=== PATIENT | female | born 1975 | race Asian ===

== ENCOUNTER 2020-06-24 15:48 | Inpatient (IN) | payer OTHER ==
[~2020-06-24] VITALS: Ht 152.4 cm; Wt 62.1 kg
[2020-06-24] MEDS ORDERED: MULT-1192 PO (15:55)
[2020-06-24 16:50] LABS: BASOPHILS % (AUTO) 0.4 % (0.0-2.0); EOSINOPHILS % (AUTO) 2.4 % (1.0-6.0); HEMATOCRIT 35.8 % (36-46); LYMPHOCYTES # (AUTO) 1.1 K/uL (1.0-4.8); LYMPHOCYTES % (AUTO) 26.8 % (22.0-44.0); MEAN CORPUSCULAR HEMOGLOBIN 29.7 pg (26.0-34.0); MEAN CORPUSCULAR HGB CONC 33.4 G/dL (31.0-37.0); MEAN CORPUSCULAR VOLUME 89 fL (80-100); MONOCYTES # (AUTO) 0.2 K/uL (0.1-1.0); MONOCYTES % (AUTO) 5.2 % (2.0-9.0); NEUTROPHILS # (AUTO) 2.6 K/uL (1.8-7.7); NEUTROPHILS % (AUTO) 65.2 % (40.0-70.0); PLATELET COUNT (AUTO) 248 K/uL (150-450); RED BLOOD CELL COUNT(AUTO) 4.02 MIL/uL (4.00-5.20); RED CELL DISTRIBUTION WIDTH 13.6 % (11.5-14.5)
[2020-06-24 16:54] LABS: GLUCOSE,POINT OF CARE 117 MG/DL (70-110)
[2020-06-24] MEDS ORDERED: IOVERSOL 350 MG/ML 100 ML VIAL ONE (16:56)
[2020-06-24] MEDS ORDERED: SODIUM CHLORIDE 0.9% 100 ML ONE (16:56)
[2020-06-24 17:07] LABS: PROTHROMBIN TIME 10.2 SEC (9.4-11.6)
[2020-06-24 17:15] LABS: ANION GAP 10 mmol/L (8-16); CALCIUM, TOTAL 8.7 mg/dL (8.8-10.5); CARBON DIOXIDE 26 mmol/L (22-29); CHLORIDE 103 mmol/L (98-107); CREATININE 0.86 mg/dL (0.60-1.30); GLOMERULAR FILTR. RATE CALC > 60 mL/min (>60); GLUCOSE,RANDOM 124 mg/dL (70-110); POTASSIUM 3.9 mmol/L (3.5-5.1); SODIUM SERUM 139 mmol/L (136-145); UREA NITROGEN, BLOOD 10 mg/dL (7-18)
[2020-06-24 17:27] LABS: ALKALINE PHOSPHATASE 50 U/L (46-116); BILIRUBIN,TOTAL 0.2 mg/dL (0.1-1.0)
[2020-06-24 17:28] LABS: ALANINE AMINOTRANSFERASE 21 U/L (12-78); ALBUMIN 3.7 g/dL (3.4-5.0); ASPARTATE AMINOTRANSFERASE 19 U/L (15-37); HCG,QUANTITATIVE 1 mIU/mL (0-6)
[2020-06-24] MEDS ORDERED: SODIUM CHLORIDE 0.9% 1,000 ML IV ONE (17:30)
[2020-06-24] MEDS ORDERED: ASPIRIN 325 MG TABLET PO ONE (17:45)
[2020-06-24] MEDS ORDERED: HEPARIN SODIUM,PORCINE 5,000 UNITS/ML VIAL IVP PRN ×4 (18:30→20:45)
[2020-06-24] MEDS ORDERED: HEPARIN SODIUM 25000 UNITS/D5W 250 ML IV PRN ×2 (18:30→20:33)
[2020-06-24] MEDS ORDERED: ACETAMINOPHEN 325 MG TABLET PO PRN (19:15)
[2020-06-24] MEDS ORDERED: ONDANSETRON HCL 4 MG/2 ML VIAL IVP PRN ×2 (19:15→20:30)
[2020-06-24] MEDS ORDERED: 0.9% SODIUM CHLORIDE 10 ML SYRINGE IVP PRN (19:15)
[2020-06-24] MEDS ORDERED: DEXTROSE 50%-WATER 25 GM/50 ML SYRINGE IVP PRN (20:45)
[2020-06-24] MEDS ORDERED: HEPARIN SODIUM,PORCINE 5,000 UNITS/ML VIAL IVP ONE (20:45)
[2020-06-24] MEDS ORDERED: INSULIN LISPRO 100 UNITS/ML SQ PRN (20:45)
[2020-06-24 20:51] VITALS: BP 107/72
[2020-06-24 21:43] LABS: CHOL/HDL RATIO 3.3 (3.9-5.7); CHOLESTEROL 197 mg/dL (131-200); HDL CHOLESTEROL 60 mg/dL (40-60); LDL CHOL (CALC.) 114 mg/dL (0-130); THYROID STIMULATING HORMONE 2.39 uIU/mL (0.36-3.74); TRIGLYCERIDES 115 mg/dL (15-150)
[2020-06-24 22:29] LABS: GLUCOMETER DEV NAME(LOC) 5S.1; GLUCOSE,POINT OF CARE 99 MG/DL (70-110)
[2020-06-24] MEDS ORDERED: INFLUENZA VIRUS VACCINE QVS 2020-21 (6MO+)/PF 60 MCG/0.5 ML SYRINGE IM ONE (23:00)
[2020-06-24 23:34] VITALS: BP 103/69
[2020-06-25] MEDS: FAMOTIDINE 10 MG/ML 2 ML VIAL IVP SCH ×2 (00:58→08:55)
[2020-06-25 02:42] LABS: PROTHROMBIN TIME 10.4 SEC (9.4-11.6)
[2020-06-25 04:14] VITALS: BP 98/62
[2020-06-25 05:54] LABS: BASOPHILS % (AUTO) 0.4 % (0.0-2.0); EOSINOPHILS % (AUTO) 3.1 % (1.0-6.0); HEMOGLOBIN 11.4 g/dL (12.0-16.0); LYMPHOCYTES # (AUTO) 2.2 K/uL (1.0-4.8); LYMPHOCYTES % (AUTO) 46.3 % (22.0-44.0); MEAN CORPUSCULAR HEMOGLOBIN 30.7 pg (26.0-34.0); MEAN CORPUSCULAR HGB CONC 34.6 G/dL (31.0-37.0); MEAN CORPUSCULAR VOLUME 89 fL (80-100); MONOCYTES # (AUTO) 0.3 K/uL (0.1-1.0); MONOCYTES % (AUTO) 6.6 % (2.0-9.0); NEUTROPHILS % (AUTO) 43.6 % (40.0-70.0); PLATELET COUNT (AUTO) 220 K/uL (150-450); RED BLOOD CELL COUNT(AUTO) 3.72 MIL/uL (4.00-5.20); RED CELL DISTRIBUTION WIDTH 13.8 % (11.5-14.5)
[2020-06-25 07:12] LABS: GLUCOMETER DEV NAME(LOC) 5S.1; GLUCOSE,POINT OF CARE 87 MG/DL (70-110)
[2020-06-25] MEDS ORDERED: ASPIRIN 81 MG CHEWABLE TABLET PO SCH (08:00)
[2020-06-25 08:43] VITALS: BP 99/58
[2020-06-25] MEDS ORDERED: ATORVASTATIN CALCIUM 40 MG TABLET PO SCH (09:00)
[2020-06-25 11:01] LABS: COVID AG,FIA SOURCE NASOPHARYNGEAL
[2020-06-25 11:27] VITALS: BP 101/63
[2020-06-25 11:47] LABS: GLUCOMETER DEV NAME(LOC) 5S.1; GLUCOSE,POINT OF CARE 84 MG/DL (70-110)
[2020-06-25 16:23] VITALS: BP 97/65
== END 2020-06-25 19:03 | disposition short-term general hospital (02) | DRG 66 ==
LOC: EMS 15:48 → 5S 20:17 → EMS 20:31 → 5S 20:33
PROVIDERS: ADMIT Internal Medicine; ATTEND Internal Medicine
DX: I63.9 Cerebral infarction, unspecified (principal); Z86.32 Personal history of gestational diabetes; D64.9 Anemia, unspecified; I95.89 Other hypotension; Z20.828 Contact with and (suspected) exposure to other viral communicable diseases
CPT/HCPCS: 70496; 70551; 72141; 82607; 83036; 84443; 86850; 86900; 86901; 87426; 92523; 93005; 93306; 93880; 97112; 97116; 97162; 97166; G0480; J1644; J3490; J7030; J7050; 36415-L1; 36415-TC; 70450; 70450-TC; 71045-TC; 80061-TC